=== PATIENT | male | born 1980 ===

== ENCOUNTER 2019-04-18 12:20 | Outpatient (CLI) | payer SELFPAY | END 2019-04-18 12:21 | disposition EMS.NT | LOC: EMS 12:20 | PROVIDERS: ATTEND Surgery | DX: M25.531 Pain in right wrist (principal); V53.5XXA Driver of pick-up truck or van injured in collision with car, pick-up truck or van in traffic accident, initial encounter; Y92.410 Unspecified street and highway as the place of occurrence of the external cause ==